=== PATIENT | female | born 1955 | race Caucasian/White ===

== ENCOUNTER → 2016-08-10 | Outpatient (CLI) | payer OTHER ==
[~2016-08-10] MED LIST: FISH OIL 1,0001 CAP PO; PHENTERMINE H37.5 M1 PO; PRAVASTATIN SOD10 MG PO; PRILOSEC40 MG PO; VITAMIN B12-FO1 EACH PO
--- NOTE | ~2016-08-10 | MY11 ---
[facility] A Service of [facility] RADIOLOGY TEXT RESULTS PATIENT: PENG JULIAN LOCATION: [facility] : 59 UNIT #: [id number] AGE: [address]: Kenneth Mccabe MD SEX: F ORDER DR: [id number] [address] [address] [id number] O MR#: [id number] Acc #: [id number] NAME: PENG JULIAN : 1955 SEX: F STUDY DATE/TIME: 08/10/2016 11:43 UNIT: [facility] ROOM: STUDY DESCRIPTION: MY Mammogram Screening Dig Saul Attending Physician: Kenneth Mccabe M.D. Referring Physician: Kenneth Mccabe M.D. Ordering Physician: Kenneth Mccabe M.D. Primary Care Physician: Kenneth Mccabe M.D. MEDICAL IMAGING REPORT This report is preliminary unless electronic signature is present EXAM Bilateral Digital Screening Mammogram with CAD INDICATION Breast cancer screening. A 61-year asymptomatic female. No personal or family history of breast cancer. COMPARISON 08/05/15, 11/21/12, 10/12/11, 09/01/10 FINDINGS There are scattered fibroglandular tissues. No suspicious findings are present. IMPRESSION No mammographic evidence of malignancy. Annual screening mammography and clinical breast exam are recommended. A result letter will be sent to the patient. Patients over the age of 40 are entered into a reminder system with target due date for the next mammogram. BIRADS: 1 Negative Dictated by... Bigg Londono M.D. [facility] A Service of [facility] RADIOLOGY TEXT RESULTS PATIENT: PENG JULIAN LOCATION: [facility] : 59 UNIT #: [id number] AGE: [address]: Kenneth Mccabe MD SEX: F ORDER DR: THIS IS AN ELECTRONICALLY VERIFIED REPORT Bigg Londono M.D. at 08/10/2016 5:33 PM Jayson TD: 08/10/2016 13:34 JOB #: [id number] MEDICAL IMAGING REPORT Page 1 of 1 COPY
== END | disposition home or self-care (01) ==
LOC: CWCC 11:16
DX: Z12.31 Encounter for screening mammogram for malignant neoplasm of breast (principal)
CPT/HCPCS: G0202